=== PATIENT | male | born 1930 | race Caucasian/White ===

== ENCOUNTER 2017-07-15 14:41 | Inpatient (IN) ==
--- NOTE | 2017-07-15 14:49 | Emergency Department Report ---
Medical Clearance HPI - General Stated complaint: [facility] eval Time Seen by Provider: 07/15/17 14:47 Source: patient, family Mode of arrival: ambulatory Limitations: no limitations - History of Present Illness HPI Narrative: Patient is an 86-year-old male increasing depression and anger outbursts. Patient family is becoming more concerned, contacted [facility] to screen the patient. They found patient to be appropriate for admission, however have sent patient to the emergency room for evaluation for medical clearance. Patient without complaint of chest pain shortness breath or other systemic signs or symptoms MD complaint: medical clearance requested Home medications: Home Medications Medication Instructions Recorded Confirmed Acetaminophen [Tylenol] 650 mg PO HS 07/15/17 07/15/17 Acetaminophen [Tylenol] 650 mg PO Q4HR PRN 07/15/17 07/15/17 Cholecalciferol (Vitamin D3) 2,000 unit PO DAILY 07/15/17 07/15/17 [Vitamin D3] Cyanocobalamin (Vitamin B-12) 1 tab SL DAILY 07/15/17 07/15/17 [Vitamin B-12] Donepezil [Aricept 10 mg] 1 tab PO DAILY 07/15/17 07/15/17 Ferrous Gluconate 324 mg PO NOON 07/15/17 07/15/17 Gabapentin [Neurontin] 600 mg PO HS 07/15/17 07/15/17 Magnesium 250 mg PO BID 07/15/17 07/15/17 Melatonin 3 mg PO HS 07/15/17 07/15/17 Memantine HCl [Namenda] 5 mg PO BID 07/15/17 07/15/17 Methylphenidate. [Ritalin] 10 mg PO BIDBL 07/15/17 07/15/17 Multivitamin [One Daily] 1 each PO DAILY 07/15/17 07/15/17 PEG 3350 17gm PACKET [Miralax] 17 gm PO DAILY PRN 07/15/17 07/15/17 Propylene Glycol/Peg 400 [Systane 1 drop OP QID PRN 07/15/17 07/15/17 Ultra 0.4-0.3% Eye Drp] Quetiapine [Seroquel] 25 mg PO DAILY 07/15/17 07/15/17 Quetiapine [Seroquel] 100 mg PO HS 07/15/17 07/15/17 Sennosides/Docusate Sodium 1 tab PO DAILY 07/15/17 07/15/17 [Senokot-S Tablet] Sodium Chloride [[place] Saline] 1 spray CONCEPCION PRN 07/15/17 07/15/17 clonazePAM [Klonopin] 1 mg PO HS 07/15/17 07/15/17 clonazePAM [Klonopin] 1 mg PO PRN 07/15/17 07/15/17 Previous Rx's Medication Instructions Recorded latanoprost (Xalatan) 0.005 % eye 1 drop EACH EYE HS #2.5 ml 07/04/17 drops Allergies/Adverse reactions: Allergies Allergy/AdvReac Type Severity Reaction Status Date / Time Penicillins Allergy Mild RASH Verified 07/15/17 14:53 Review of Systems Constitutional: Denies: fever, chills Eyes: Denies: eye pain, eye discharge ENT: Denies: ear pain, throat pain Cardiovascular: Denies: chest pain, palpitations Respiratory: Denies: cough, dyspnea, wheezes Gastrointestinal: Denies: abdominal pain, nausea, vomiting Genitourinary: Denies: urgency, dysuria, frequency Musculoskeletal: Denies: back pain Neurological: Denies: headache, weakness, numbness, abnormal gait Psychiatric: Reports: depression. Denies: anxiety Endocrine: Denies: fatigue, heat or cold intolerance Hematological/Lymphatic: Denies: easy bleeding, easy bruising PFSH Patient Stated Medical History Transient Ischemic Attacks ( Yes TIA) Other HEENT Yes: Wears glasses Hypertension Yes Gastroesophageal Reflux Yes Disease Other GI Yes: Stomach CA Hx Benign Prostatic Yes Hyperplasia - Social History Smoking status: Never smoker Substance use type: does not use Alcohol intake frequency: does not drink Physical Exam - Limitations Limitations: no limitations - General General appearance: alert, in no apparent distress - Head Head exam: normocephalic, normal inspection - Eye Eye exam: Present: PERRL, EOMI - ENT ENT exam: Present: normal oropharynx, TM's normal bilaterally - Neck Neck exam: Present: full ROM, trachea midline. Absent: tenderness - Chest Chest inspection: Present: symmetric chest wall rise. Absent: tenderness, rash - Respiratory Respiratory exam: Present: normal lung sounds bilaterally. Absent: respiratory distress, wheezes, stridor - Cardiovascular Cardiovascular exam: Present: regular rate, normal rhythm, normal heart sounds - Abdominal Exam Abdominal exam: Present: soft, normal bowel sounds. Absent: distention, tenderness - Back Exam Back exam: Present: full ROM. Absent: tenderness, CVA tenderness (R), CVA tenderness (L) - Skin Skin exam: Present: warm, dry - Neurological Exam Neurological exam: Present: alert, oriented X3 - Psychiatric Psychiatric exam: Present: normal affect, normal mood Course Vital Signs Temperature 98.3 F 07/15/17 14:49 Pulse Rate 76 07/15/17 14:49 Respiratory Rate 18 07/15/17 14:49 Blood Pressure 170/88 H 07/15/17 14:49 Pulse Oximetry 92 07/15/17 14:49 Temperature 98.2 F 07/18/17 07:56 Pulse Rate 70 07/18/17 07:56 Respiratory Rate 16 07/18/17 07:56 Blood Pressure 134/72 07/18/17 07:56 Pulse Oximetry 93 07/18/17 07:56 Medical Clearance - Medical Records Attestation: I reviewed the patient's medical records. - Lab Data Attestation: I reviewed the patient's lab results. Result diagrams: 07/15/17 15:40 07/18/17 07:18 Lab Results 07/15/17 07/15/17 07/15/17 Range/Units 15:00 15:36 15:40 WBC 8.1 (4.5-11.0) T/MM3 RBC 4.13 L (4.50-5.90) M/MM3 Hgb 12.7 L (13.5-17.5) GM/DL Hct 39.9 L (41-53) % MCV 96.6 (80-100) UM3 MCH 30.8 (26-34) UUG MCHC 31.8 (31-37) GM/DL RDW Std Deviation 50.3 H (36.9-50.2) FL Plt Count 231 (130-400) T/MM3 MPV 10.1 (9.4-12.4) UM3 Immature Gran % (Auto) 0.2 (0.0-0.5) % Neut % (Auto) 64.8 (33-66) % Lymph % (Auto) 23.4 (23-45) % [place] % (Auto) 8.4 (0-9.0) % Eos % (Auto) 3.0 (0-4) % Baso % (Auto) 0.2 (0-2) % Neut # (Auto) 5.2 (1.8-7.7) T/MM3 Lymph # (Auto) 1.9 (1-4.8) T/MM3 [place] # (Auto) 0.7 (0-0.8) T/MM3 Eos # (Auto) 0.2 (0-0.5) T/MM3 Baso # (Auto) 0.0 (0-0.2) T/MM3 Abs Immat Gran (auto) 0.02 (0.00-0.03) T/MM3 Turbidity (0-20) Sodium (134-144) MEQ/L Potassium (3.6-5) MEQ/L Chloride (98-107) MEQ/L Carbon Dioxide (22-30) MEQ/L Anion Gap (5-15) meq/L BUN (9-20) MG/DL Creatinine (0.8-1.5) mg/dL GFR Calculation BUN/Creatinine Ratio (6-26) RATIO Glucose (75-110) MG/DL Calculated Osmolality (261-280) MOSM/KG Calcium (8.4-10.2) MG/DL Total Bilirubin (0.20-1.30) MG/DL Icterus Index (0-7) AST (17-59) U/L ALT (1-50) U/L Alkaline Phosphatase (38-126) U/L Total Protein (6.3-8.2) g/dL Albumin (3.5-5.0) g/dL Globulin (2.4-3.6) G/DL Albumin/Globulin Ratio (1.1-2.2) RATIO Vitamin B12 > 1000 H (239-931) pg/mL Folate > 20.0 H (2.76-20) ng/mL TSH (0.47-4.68) mIU/L Specimen Hemolysis (0-25) Ur Collection Type Urine, void-cc/notcc Urine Color Yellow (YELLOW) Urine Clarity Clear Urine pH 6.5 (5.0-8.0) Ur Specific [place] 1.020 (1.015-1.025) Urine Protein Negative (NEGATIVE) Urine Glucose (UA) Negative (NEGATIVE) Urine Ketones Negative (NEGATIVE) Urine Occult Blood Negative (NEGATIVE) Urine Nitrate Negative (NEGATIVE) Urine Bilirubin Negative (NEGATIVE) Urine Urobilinogen 1.0 (NORMAL) EU/DL Ur Leukocyte Esterase Negative (NEGATIVE) Urinalysis Comment Microscopic not ind. 07/15/17 Range/Units 15:40 WBC (4.5-11.0) T/MM3 RBC (4.50-5.90) M/MM3 Hgb (13.5-17.5) GM/DL Hct (41-53) % MCV (80-100) UM3 MCH (26-34) UUG MCHC (31-37) GM/DL RDW Std Deviation (36.9-50.2) FL Plt Count (130-400) T/MM3 MPV (9.4-12.4) UM3 Immature Gran % (Auto) (0.0-0.5) % Neut % (Auto) (33-66) % Lymph % (Auto) (23-45) % [place] % (Auto) (0-9.0) % Eos % (Auto) (0-4) % Baso % (Auto) (0-2) % Neut # (Auto) (1.8-7.7) T/MM3 Lymph # (Auto) (1-4.8) T/MM3 [place] # (Auto) (0-0.8) T/MM3 Eos # (Auto) (0-0.5) T/MM3 Baso # (Auto) (0-0.2) T/MM3 Abs Immat Gran (auto) (0.00-0.03) T/MM3 Turbidity < 20 (0-20) Sodium 149 H (134-144) MEQ/L Potassium 4.1 (3.6-5) MEQ/L Chloride 110 H (98-107) MEQ/L Carbon Dioxide 29 (22-30) MEQ/L Anion Gap 10 (5-15) meq/L BUN 20.0 (9-20) MG/DL Creatinine 1.0 (0.8-1.5) mg/dL GFR Calculation 71 BUN/Creatinine Ratio 20 (6-26) RATIO Glucose 112 H (75-110) MG/DL Calculated Osmolality 290 H (261-280) MOSM/KG Calcium 8.9 (8.4-10.2) MG/DL Total Bilirubin 0.30 (0.20-1.30) MG/DL Icterus Index < 2 (0-7) AST 54 (17-59) U/L ALT 51 H (1-50) U/L Alkaline Phosphatase 69 (38-126) U/L Total Protein 6.6 (6.3-8.2) g/dL Albumin 3.9 (3.5-5.0) g/dL Globulin 2.7 (2.4-3.6) G/DL Albumin/Globulin Ratio 1.4 (1.1-2.2) RATIO Vitamin B12 (239-931) pg/mL Folate (2.76-20) ng/mL TSH 2.86 (0.47-4.68) mIU/L Specimen Hemolysis < 15 (0-25) Ur Collection Type Urine Color (YELLOW) Urine Clarity Urine pH (5.0-8.0) Ur Specific [place] (1.015-1.025) Urine Protein (NEGATIVE) Urine Glucose (UA) (NEGATIVE) Urine Ketones (NEGATIVE) Urine Occult Blood (NEGATIVE) Urine Nitrate (NEGATIVE) Urine Bilirubin (NEGATIVE) Urine Urobilinogen (NORMAL) EU/DL Ur Leukocyte Esterase (NEGATIVE) Urinalysis Comment - Radiology Data Attestation: I reviewed the patient's radiology results. Chest x-ray: No acute cardiopulmonary findings - EKG Data EKG #1 EKG attestation: Yes: I reviewed and interpreted this EKG. EKG shows normal: sinus rhythm Rate: normal Rhythm: NSR [place]/QRS: RBBB Interpretation: no acute changes Disposition Clinical Impression: [facility] Clear[facility] Disposition: 63 To [facility] Condition: Stable for Transport - Seen By: physician
--- OUTSIDE RECORDS SUMMARY | 2017-07-15 15:13 | External Medical Summary | Continuity of Care Document ---
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 [id number] - 06/08/17 10:10 Vitamin B12 - AMS > 2000 pg/mL 213-816 [id number] - 06/08/17 10:10 Free T4 (Free Thyroxine)-AMS 0.9 ng/dL 0.7-1.5 Encounters ACCT No. Visit Discharge Status Pt. Type Provider Facility Loc./Unit Complaint Date/Time [id number] 09/08/2015 09/08/2015 DIS Emergenc [place] [facility] "TIA &quo 142 15:41:00 19:21:00 y , [facility] [id number] 09/01/2015 09/01/2015 CLS Outpatie Marcelo Baer MTJose AlfredoGOVE 429 06:53:00 23:59:59 david ARREDONDO, [facility] [id number] 10/12/2012 10/12/2012 CLS Outpatie Marie GERMANWKUA 720 10:45:00 23:59:59 david Tirado [facility] [id number] 02/07/2012 02/07/2012 CLS Outpatie Marie MITTAL.P 425 14:40:00 23:59:59 david Tirado [facility] [id number] 09/28/2006 09/28/2006 CLS Outpatilashon Jessica MD, Buffy 023 00:00:00 23:59:59 david [facility] [id number] 04/06/2017 04/06/2017 CLS Outpatie GOVE, 16:08:00 23:59:59 nt [facility] [id number] 04/06/2017 04/06/2017 DIS Outpatie LADAN, ELECTRONIC 15:47:00 15:47:00 nt EMELIA M ORDER LABS [id number] 01/03/2017 01/03/2017 CLS Outpatie ANITA, XRAYS 13:07:00 23:59:59 nt TARIQ W [id number] 12/10/2016 12/10/2016 DIS Outpatie ANITA, MRI C-SPINE, 06:50:00 07:18:00 nt TARIQ W NO ACCIDENT [id number] 10/05/2016 10/20/2016 DIS Outpatie GRUENBTOREY PHYS THERAPY; 07:21:00 11:17:00 nt ER, BRIE NO ACCIDENT [id number] 10/01/2016 10/01/2016 DIS Outpatie LADAN, MRI BRAIN 06:50:00 07:31:00 nt EMELIA M [id number] 09/09/2016 09/27/2016 DIS Outpatie GRUENBACH PHYSICAL 09:23:00 14:36:00 nt ER, BRIE THERAPY [id number] 09/06/2016 09/06/2016 CLS Outpatie GRMARLYNACH LABWORK 11:43:00 23:59:59 nt ER, BRIE [id number] 06/11/2016 06/11/2016 DIS Outpatie MARCELO, LABS 08:27:00 08:27:00 nt BRIDGER [id number] 02/26/2016 02/26/2016 CLS Outpatie GRUENBACH LEFT WRIST 12:05:00 23:59:59 nt ER, BRIE FRACTURE [id number] 02/11/2016 02/11/2016 CLS Outpatie GRUENBACH L WRIST 14:53:38 23:59:59 nt ER, BRIE FRACTURE [id number] 01/19/2016 01/19/2016 CLS Outpatie LADAN, BLOODWORK 12:24:00 23:59:59 nt EMELIA M [id number] 01/15/2016 01/15/2016 CLS Outpatie LADAN, RED SWOLLEN 14:11:00 23:59:59 nt EMELIA M FEET [id number] 12/31/2015 12/31/2015 DIS Emergenc GRELO BROKE L ARM 11:13:00 13:45:00 y ER, BRIE [id number] 12/17/2015 12/17/2015 CLS Outpatie GRUENBACH BALANCE 12:39:00 23:59:59 nt ER, BRIE STRENGTHENING [id number] 12/14/2015 12/15/2015 DIS Inpatien LADAN, [place] 001 DYSEQUALIBRIM 12:46:00 17:10:00 t EMELIA [place] WITH HISTORY Medical OF TIA /[facility] [id number] 12/14/2015 12/14/2015 DIS Emergenc LADAN, POSSIBLE 11:04:00 12:45:00 y EMELIA [place]ello STROKE [id number] 11/21/2015 11/21/2015 DIS Outpatie NEMECHEK, TIA 10:08:00 10:08:00 nt BRIDGER [id number] 01/07/2016 Document 13:33:00 Registra tion [id number] 09/02/2015 Document 15:11:00 Registra tion [id number] 09/01/2015 Document 12:17:00 Registra tion [id number] 07/04/2017 07/04/2017 CLS Outpatie Nilhas 601 03:02:18 23:59:59 nt Bill ARREDONDO KSWebIMarizol 07/09/2017 ACT Document 09:40:50 Registra tion [id number] 07/08/2017 07/08/2017 DIS Outpatie GRUNDMEYE XR 08:47:00 13:47:00 nt HORTENCIA Morales [id number] 12/06/2016 12/06/2016 CLS Outpatie ANITA ARREDONDO, Noemí SRNS 370 10:00:00 23:59:59 nt [facility] [id number] 06/08/2017 06/08/2017 DIS Helen VILLAGOMEZ MD, [facility] Amarjit Lab- 548 09:54:00 11:18:00 nt KAYLYN [facility] Practice [id number] 06/07/2017 06/07/2017 RACHEL VILLAGOMEZ MD, [facility] Amarjit Lab - 067 10:30:00 12:00:00 nt KAYLYN [facility] [id number] 07/15/2017 Document 177 14:42:00 Registra tion [id number] 06/28/2017 Document 068 23:59:00 Registra tion [id number] 06/21/2017 Document 783 23:59:00 Registra tion [id number] 06/14/2017 Document 549 23:59:00 Registra tion [id number] 06/07/2017 Document 269 23:59:00 Registra tion [id number] 06/01/2016 06/01/2016 DIS Unknown 05:47:08 05:47:08 [id number] 05/27/2017 05/31/2017 DIS Inpatien Nilhas,, [facility], [facility] 692 06:06:00 10:55:00 [facility] on [address] [id number] 06/01/2017 Document [id number] 05:20:26 Registra tion [id number] 05/31/2017 Document [id number] 05:21:23 Registra tion [id number] 05/30/2017 Document [id number] 05:16:48 Registra tion [id number] 05/29/2017 Document [id number] 05:16:08 Registra tion [id number] 05/28/2017 Document [id number] 05:18:55 Registra tion [id number] 07/06/2016 07/06/2016 DIS Outpatie 12:02:33 12:02:34 nt [id number] 06/16/2016 06/16/2016 DIS Outpatie 11:31:55 11:31:55 nt [id number] 05/11/2016 05/11/2016 DIS Outpatie 19:48:19 19:48:20 nt [id number] 03/16/2016 03/16/2016 DIS Outpatie 19:33:08 19:33:08 nt [id number] 02/13/2016 02/13/2016 DIS Outpatie 11:57:12 11:57:12 nt [id number] 02/05/2016 02/05/2016 DIS Outpatie 19:17:37 19:17:37 nt [id number] 02/03/2016 02/03/2016 Outpatie 12:47:07 12:47:07 nt [id number] 10/06/2015 10/06/2015 DIS Outpatie 19:34:14 19:34:14 nt [id number] 10/25/2016 Document 15:18:42 Registra tion [id number] 09/09/2016 Document 14:34:19 Registra tion [id number] 05/17/2016 Document 17:41:39 Registra tion [id number] 03/15/2016 Document 18:35:58 Registra tion [id number] 03/09/2016 Document 15:58:20 Registra tion [id number] 02/04/2016 Document 10:22:43 Registra tion [id number] 12/22/2015 Document 12:37:00 Registra tion [id number] 12/03/2015 Document 05:01:00 Registra tion [id number] 12/01/2015 Document 10:10:00 Registra tion [id number] 11/19/2015 Document 11:40:00 Registra tion [id number] 04/05/2017 04/05/2017 [facility] Helen Olivier 13:30:00 23:59:59 nt er, [place]ina AGUIAR [id number] 04/05/2017 Document 13:30:00 Registra tion
--- NOTE | 2017-07-15 15:52 | XRay Report ---
Indication: generations clearance PROCEDURE: XR chest 1V: Encounter: Initial Comparison: September 24, 2008 Findings: The lungs are stable in appearance without new focal airspace consolidation. There is no pleural effusion or pneumothorax. The heart size, pulmonary vascularity and mediastinal contours are unchanged. Left subclavian port catheter in stable position. IMPRESSION: Stable appearance of the chest without acute cardiopulmonary disease. .
[2017-07-15 18:02] VITALS: BMI 29.1
[2017-07-15] MEDS ORDERED: HALOPERIDOL 0.5 MG TABLET PO PRN (21:28)
[2017-07-15] MEDS ORDERED: LORazepam 0.5 MG TABLET PO PRN (21:28)
[2017-07-15] MEDS ORDERED: SALINE 0.65% NASAL SPRAY 44 ML BOTTLE EA NOSTRIL SCH (21:28)
[2017-07-15] MEDS ORDERED: HALOPERIDOL 5 MG/ML INJECTION IM PRN (21:28)
[2017-07-15] MEDS ORDERED: POLYETHYL GLYCOL 3350 17gm PACKET PO PRN (21:28)
[2017-07-15] MEDS: ClonazePAM 1 MG TABLET PO SCH (22:16)
[2017-07-15] MEDS: ACETAMINOPHEN 325 MG TABLET PO SCH (22:16)
[2017-07-15] MEDS: GABAPENTIN 600 MG TABLET PO SCH (22:17)
[2017-07-15] MEDS: QUETIAPINE 100 MG TABLET PO SCH (22:17)
[2017-07-15] MEDS: MEMANTINE 5 MG TABLET PO SCH (22:17)
[2017-07-16] MEDS: LATANOPROST 0.005% EYE DROPS 2.5ml EACH EYE SCH ×2 (08:54→20:43)
[2017-07-16] MEDS: CYANOCOBALAMIN (B-12) 500mcg TABLET PO SCH (08:55)
[2017-07-16] MEDS: SENNA + DOCUSATE TABLET PO SCH (08:56)
[2017-07-16] MEDS: MAGNESIUM OXIDE 400 MG TABLET PO SCH ×2 (08:56→20:43)
[2017-07-16] MEDS: MULTI-VITAMIN PLAIN TABLET PO SCH (08:56)
[2017-07-16] MEDS: MEMANTINE 5 MG TABLET PO SCH ×2 (08:56→20:44)
[2017-07-16] MEDS: QUETIAPINE 25 MG TABLET PO SCH (08:56)
[2017-07-16] MEDS ORDERED: SYSTANE EYE DROPS 0.7ml EACH EYE PRN (09:00)
--- NOTE | 2017-07-16 11:54 | 24 Hour Neuropsychiatic Eval ---
Date of Admission: 07/15/17 16:25 Chief complaint: "I got hit in the head" History of Present Illness: HPI: 86 Y/O CM with a hx of dementia sent from [facility] for inncreasing confusion and aggression. Nursing reports pt slept well and has done well on the unit. On face to face the pt is pleasant but confused. He is a somewhat poor historian. Pt is alert and oriented x 3 but states he is here because a "Chain saw hit me in the head". He was reporting to nursing staff he believed he was in a war and needed to go outside to 'get the sniper". He voices no concerns at this time. PSYCH ROS: Pt is very pleasant. He reports his mood is stable. He denies any S/I or depressive symptoms. He reports sleeping well and having a good appetite. He denies anxiety, aiden or psychosis. PAST PSYCH: Pt is currently on Seroquel, Ritalin, Klonopin, Aricept and Namenda. No other past psych hx is known at this time although pt denies ever being treated for a mental health issues. SUBSTANCE: Denies SOCIAL HX: Born in [place]. Was a [employer]. . [facility] Patient Stated Medical History Transient Ischemic Attacks ( Yes TIA) Other HEENT Yes: Wears glasses Hypertension Yes Gastroesophageal Reflux Yes Disease Other GI Yes: Stomach CA Hx Benign Prostatic Yes Hyperplasia - Social History Smoking status: Never smoker Review of Systems - Psychiatric Psychiatric: Present: behavioral changes Mental Status Exam Vitals: Last Vital Signs Temp 97.5 F 07/16/17 07:40 Pulse 64 07/16/17 07:40 Resp 16 07/16/17 07:40 BP 140/73 H 07/16/17 07:40 Pulse Ox 93 07/16/17 07:40 Height: 1.7 m Weight: 84.3 kg - Mental Status Exam Muscle Strength/Tone: Normal Dressing: Casual Grooming: Good Attitude: Cooperative Motor Activity: Normal Eye Contact: Good Speech: Normal Volume: Normal Rhythm: Appropriate Rhythm Orientation: Oriented to person, Oriented to time Mood: Euthymic Affect: Bright Rate of Thoughts: Appropriate Rate Thought Organization: [place] Associations: Illogical Thought Content: Normal Perception/Psychotic: Perception Normal Language: Naming Impaired Fund of Knowledge: Poor fund of knowledge Memory: Poor-immediate, Poor-recent Suicidal Ideation: None Homicidal Ideation: None Insight: Poor Judgement: Poor Impulse Control: Poor - Laboratory Result Diagrams: 07/15/17 15:40 07/15/17 15:40 Assessment and Plan (1) Major neurocognitive disorder due to Alzheimer's disease, probable, with behavioral disturbance Current visit: Yes Status: Acute Continue to evaluate and stabilize. We will hold Ritalin at this time. Will attempt to titrate down on Clonazepam or switch to Ativan. Continue other home meds. Hospitalist for medical management
[2017-07-16] MEDS ORDERED: ClonazePAM 1 MG TABLET PO PRN (12:07)
--- NOTE | 2017-07-16 12:15 | History & Physical Report ---
History of Present Illness Date: 07/16/17 HPI: Ezequiel Okeefe is an 86 y/o male with a history of dementia. He struck his head on a door frame in May that caused LOC, resulting in cerebral contusion and left frontal SAH that was treated conservatively. He has shown slow improvement in mental status - initially he was severely impaired and now moderately impaired. He was sent to [facility] in [place] upon discharge from [facility]. Per reports, he' s been sundowning and exhibiting aggressive behavior. He hasn't been sleeping well. He's been paranoid and talking about needing to go for a drive and remarking about going to war. His symptoms worsened about 1 week ago, and haven' t improved with clonazepam and Risperdal. Arrangements were made for him to be admitted to [facility]. Labs on admission showed mild anemia with hgb of 12.7 and hypernatremia with Na of 149. Ezequiel was dozing off in his room on [facility]. He easily awoke and complained of feeling "sleepy". He was in no acute distress. He stated he's from [place] bit was unable to state where he is - he answered that he was sitting in a chair. Reports a headache from a head injury 3 weeks ago - he stated he was using a chain to pull the tractor out of the [place] and the chain snapped, striking him in the forehead. He denies fever/chills, cough/sinus problems, SOA or chest pain , weakness or dizziness, abdominal pain, vomiting or diarrhea, appetite changes , urinary problems. When I asked about leg swelling he appropriately answered that he wears STACEY hose. Review of Systems All systems PM: 10-point ROS was reviewed, no additional remarkable complaints except - Constitutional Constitutional: Present: headache(s). Absent: chills, fever(s), weakness - EENMT Eyes: Absent: change in vision Nose: Absent: obstruction Mouth/Throat: Absent: sore throat - Cardiovascular Cardiovascular: Absent: chest pain, palpitations Vascular: Present: pedal edema (wears stacey hose) - Respiratory Respiratory: Absent: cough, dyspnea - Gastrointestinal Gastrointestinal: Absent: abdominal pain, diarrhea, vomiting - Genitourinary Genitourinary: Absent: dysuria - Musculoskeletal Musculoskeletal: Absent: muscle weakness - Integumentary/Breasts Integumentary: Absent: rash - Neurological Neurological: Present: as per HPI - Psychiatric Psychiatric: Present: as per HPI - Endocrine Endocrine: Absent: palpitations Past Medical History Medical History Updates: Mild cerebrovascular dementia. RLS. Stomach cancer. Knee osteoarthritis Surgical History: Total knee replacement Family History: Unable to Obtain - Social History Smoking status: Never smoker Substance use type: does not use Alcohol intake frequency: does not drink Household members: spouse Current occupational status: retired Previous occupational history: [employer] Medications Home Medications Medication Instructions Recorded Confirmed Type latanoprost (Xalatan) 0.005 % eye 1 drop EACH EYE HS #2.5 ml 07/04/17 07/15/17 Rx drops Acetaminophen [Tylenol] 650 mg PO HS 07/15/17 07/15/17 History Acetaminophen [Tylenol] 650 mg PO Q4HR PRN 07/15/17 07/15/17 History Cholecalciferol (Vitamin D3) 2,000 unit PO DAILY 07/15/17 07/15/17 History [Vitamin D3] Cyanocobalamin (Vitamin B-12) 1 tab SL DAILY 07/15/17 07/15/17 History [Vitamin B-12] Donepezil [Aricept 10 mg] 1 tab PO DAILY 07/15/17 07/15/17 History Ferrous Gluconate 324 mg PO NOON 07/15/17 07/15/17 History Gabapentin [Neurontin] 600 mg PO HS 07/15/17 07/15/17 History Magnesium 250 mg PO BID 07/15/17 07/15/17 History Melatonin 3 mg PO HS 07/15/17 07/15/17 History Memantine HCl [Namenda] 5 mg PO BID 07/15/17 07/15/17 History Methylphenidate. [Ritalin] 10 mg PO BIDBL 07/15/17 07/15/17 History Multivitamin [One Daily] 1 each PO DAILY 07/15/17 07/15/17 History PEG 3350 17gm PACKET [Miralax] 17 gm PO DAILY PRN 07/15/17 07/15/17 History Propylene Glycol/Peg 400 [Systane 1 drop OP QID PRN 07/15/17 07/15/17 History Ultra 0.4-0.3% Eye Drp] Quetiapine [Seroquel] 25 mg PO DAILY 07/15/17 07/15/17 History Quetiapine [Seroquel] 100 mg PO HS 07/15/17 07/15/17 History Sennosides/Docusate Sodium 1 tab PO DAILY 07/15/17 07/15/17 History [Senokot-S Tablet] Sodium Chloride [[place] Saline] 1 spray CONCEPCION PRN 07/15/17 07/15/17 History clonazePAM [Klonopin] 1 mg PO HS 07/15/17 07/15/17 History clonazePAM [Klonopin] 1 mg PO PRN 07/15/17 07/15/17 History Allergies Allergy/AdvReac Type Severity Reaction Status Date / Time Penicillins Allergy Mild RASH Verified 07/15/17 14:53 Exam Vital Signs: Temperature 97.5 F 07/16/17 07:40 Pulse Rate 64 07/16/17 07:40 Respiratory Rate 16 07/16/17 07:40 Blood Pressure 140/73 H 07/16/17 07:40 Pulse Oximetry 93 07/16/17 07:40 Height/Weight/BMI: Height 1.7 m Weight 84.3 kg Body Mass Index 29.1 - Constitutional Present: no acute distress, well nourished, well developed - Routine HEENT Exam Head: Present: normocephalic Eye: Present: PERRL. Absent: conjunctival icterus, scleral injection ENT: Present: mucous membranes moist, oropharynx clear - Routine Neck Exam Present: supple - Routine Respiratory Exam Present: CTA bilaterally - Routine Cardiovascular Exam Present: RRR, S1, S2 - Routine Abdominal Exam Present: soft, normoactive bowel sounds, non distended, non tender - Routine Extremities Exam Present: edema (trace BLE; STACEY hose in place), pulses intact - Routine Skin Exam Present: intact, dry, warm - Routine Neurological Exam Present: alert, CN II-XII intact, moving all extremities, vision grossly intact , hearing grossly intact, normal speech. 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 TSH was normal. CXR unremarkable. Vit B12 and folate still pending. BP moderately elevated - monitor for now. He's not on an antiHTN. Encourage oral fluids for hypernatremia. Recheck BMP on 07/18. Provide safe, supportive environment. Dr Rodriguez's recommendations were reviewed. Clinic records and nsg home records were reviewed. Code: DNR. PCP: Dr. Meadows. Resuscitation Status: Do Not Resuscitate - Physician Narrative Narrative: Date: 07/16/17 Time: 1212 Hospital Course Summary Disclaimer: The visit summary below is not to be considered part of the above Progress Note. Hospital Course: 07/16 Agree with [facility] w/u. TSH was normal. CXR unremarkable. Vit B12 and folate still pending. BP moderately elevated - monitor for now. He's not on an antiHTN. Encourage oral fluids for hypernatremia. Recheck BMP on 07/18. Provide safe, supportive environment. Dr Rodriguez's recommendations were reviewed. Clinic records and nsg home records were reviewed. Code: DNR. PCP: Dr. Meadows.
[2017-07-16] MEDS: FERROUS GLUCONATE 324 MG TABLET PO SCH (14:45)
[2017-07-16] MEDS: ACETAMINOPHEN 325 MG TABLET PO SCH (20:40)
[2017-07-16] MEDS: ClonazePAM 1 MG TABLET PO SCH (20:41)
[2017-07-16] MEDS: DONEPEZIL 10 MG TABLET PO SCH (20:41)
[2017-07-16] MEDS: GABAPENTIN 600 MG TABLET PO SCH (20:41)
[2017-07-16] MEDS: QUETIAPINE 100 MG TABLET PO SCH (20:44)
[2017-07-17] MEDS: MAGNESIUM OXIDE 400 MG TABLET PO SCH ×2 (08:47→20:31)
[2017-07-17] MEDS: MULTI-VITAMIN PLAIN TABLET PO SCH (08:47)
[2017-07-17] MEDS: QUETIAPINE 25 MG TABLET PO SCH (08:48)
[2017-07-17] MEDS: SENNA + DOCUSATE TABLET PO SCH (08:48)
[2017-07-17] MEDS: MEMANTINE 5 MG TABLET PO SCH ×2 (08:48→20:31)
[2017-07-17] MEDS: CYANOCOBALAMIN (B-12) 500mcg TABLET PO SCH (08:48)
--- NOTE | 2017-07-17 11:43 | Neuropsych Progress Note ---
[facility] Subjective Date: 07/17/17 - Sujective/Severity of Illness Medications: Acetaminophen (Tylenol) 650 mg PO [facility] Last Admin: 07/16/17 20:40 Dose: 650 mg Cholecalciferol (Vit. D-3) 2,000 unit PO DAILY [facility] Last Admin: 07/17/17 08:45 Dose: 2,000 unit Clonazepam (Klonopin) 1 mg PO [facility] Last Admin: 07/16/17 20:41 Dose: 1 mg Clonazepam (Klonopin) 1 mg PO DAILY PRN Cyanocobalamin (Vit. B-12) 500 mcg PO DAILY [facility] Last Admin: 07/17/17 08:48 Dose: 500 mcg Donepezil HCl (Aricept 10 Mg) 10 mg PO [facility] Last Admin: 07/16/17 20:41 Dose: 10 mg Ferrous Gluconate (Fergon) 324 mg PO NOON [facility] Last Admin: 07/16/17 14:45 Dose: 324 mg Gabapentin (Neurontin) 600 mg PO [facility] Last Admin: 07/16/17 20:41 Dose: 600 mg Haloperidol (Haldol) 0.5 mg PO Q6H PRN PRN Reason: Extreme agitation Haloperidol Lactate (Haldol) 0.5 mg IM Q6H PRN PRN Reason: Extreme agitation Latanoprost (Xalatan) 1 drops EACH EYE [facility] Last Admin: 07/16/17 20:43 Dose: 1 drops Lorazepam (Ativan) 0.5 mg PO Q6H PRN PRN Reason: Extreme agitation Lorazepam (Ativan Inj) 0.5 mg IM Q6H PRN PRN Reason: Extreme agitation Magnesium Oxide (Magox) 400 mg PO BID [facility] Last Admin: 07/17/17 08:47 Dose: 400 mg Memantine (Namenda) 5 mg PO BID [facility] Last Admin: 07/17/17 08:48 Dose: 5 mg Multivitamins (Theragran) 1 tab PO DAILY [facility] Last Admin: 07/17/17 08:47 Dose: 1 tab Polyethyl Glycol/Propylene Glycol (Systane Eye Drops) 1 drop EACH EYE QID PRN PRN Reason: FOR DRY EYES Polyethylene Glycol (Miralax) 17 gm PO DAILY PRN PRN Reason: Constipation Quetiapine Fumarate (Seroquel) 25 mg PO DAILY [facility] Last Admin: 07/17/17 08:48 Dose: 25 mg Quetiapine Fumarate (Seroquel) 100 mg PO HS [facility] Last Admin: 07/16/17 20:44 Dose: 100 mg Senna/Docusate Sodium (Senna Plus Tablet) 1 tab PO DAILY [facility] Last Admin: 07/17/17 08:48 Dose: 1 tab Sodium Chloride (Deep Sea Nasal Moisturizing [place]) 1 spray EA NOSTRIL PRN [facility] Subjective: Pt seen and chart examined. Nursing reports pt is doing well. Sleeping well and has a good appetite. No behaviors noted. On face to face the pt is pleasant and cooperative. He reports he feels his mood is stable. He denies any pain. Tolerating meds. Voices no concerns at this time Start Time: 10:30 Stop Time: 10:45 Mental Status Exam Vitals: Last Vital Signs Temp 97.8 F 07/17/17 08:00 Pulse 68 07/17/17 08:00 Resp 16 07/17/17 08:00 BP 136/66 07/17/17 08:00 Pulse Ox 93 07/16/17 20:00 Height: 1.7 m Weight: 84.3 kg - Mental Status Exam Muscle Strength/Tone: Normal Dressing: Casual Grooming: Good Attitude: Cooperative Motor Activity: Normal Eye Contact: Good Speech: Normal Volume: Normal Rhythm: Appropriate Rhythm Orientation: Oriented to person, Oriented to time Mood: Euthymic Rate of Thoughts: Appropriate Rate Thought Organization: [place] Associations: Illogical Thought Content: Normal Perception/Psychotic: Perception Normal Language: Naming Impaired Fund of Knowledge: Poor fund of knowledge Memory: Poor-immediate, Poor-recent Suicidal Ideation: None Homicidal Ideation: None Insight: Poor Judgement: Poor Impulse Control: Poor - Laboratory Result Diagrams: 07/15/17 15:40 07/15/17 15:40 Assessment and Plan (1) Major neurocognitive disorder due to Alzheimer's disease, probable, with behavioral disturbance Current visit: Yes Status: Acute Hospital Course Summary Disclaimer: The visit summary below is not to be considered part of the above Progress Note. Hospital Course: 07/16 Agree with [facility] w/u. TSH was normal. CXR unremarkable. Vit B12 and folate still pending. BP moderately elevated - monitor for now. He's not on an antiHTN. Encourage oral fluids for hypernatremia. Recheck BMP on 5/14. Provide safe, supportive environment. Dr Rodriguez's recommendations were reviewed. Clinic records and nsg home records were reviewed. Code: DNR. PCP: Dr. Meadows. 07/17/17 Psych note- No behaviors. Continue current care
[2017-07-17] MEDS: FERROUS GLUCONATE 324 MG TABLET PO SCH (12:53)
[2017-07-17] MEDS: ACETAMINOPHEN 325 MG TABLET PO SCH (20:26)
[2017-07-17] MEDS: DONEPEZIL 10 MG TABLET PO SCH (20:28)
[2017-07-17] MEDS: ClonazePAM 1 MG TABLET PO SCH (20:30)
[2017-07-17] MEDS: GABAPENTIN 600 MG TABLET PO SCH (20:30)
[2017-07-17] MEDS: QUETIAPINE 100 MG TABLET PO SCH (20:31)
[2017-07-17] MEDS: LATANOPROST 0.005% EYE DROPS 2.5ml EACH EYE SCH (20:31)
[2017-07-18] MEDS: CYANOCOBALAMIN (B-12) 500mcg TABLET PO SCH (08:24)
[2017-07-18] MEDS: MEMANTINE 5 MG TABLET PO SCH ×2 (08:24→20:37)
[2017-07-18] MEDS: MULTI-VITAMIN PLAIN TABLET PO SCH (08:24)
[2017-07-18] MEDS: MAGNESIUM OXIDE 400 MG TABLET PO SCH ×2 (08:24→20:36)
[2017-07-18] MEDS: QUETIAPINE 25 MG TABLET PO SCH (08:25)
[2017-07-18] MEDS: SENNA + DOCUSATE TABLET PO SCH (08:25)
[2017-07-18] MEDS: FERROUS GLUCONATE 324 MG TABLET PO SCH (11:56)
--- NOTE | 2017-07-18 14:02 | Neuropsych Progress Note ---
[facility] Subjective Date: 07/19/17 - Sujective/Severity of Illness Medications: Acetaminophen (Tylenol) 650 mg PO [facility] Last Admin: 07/17/17 20:26 Dose: 650 mg Cholecalciferol (Vit. D-3) 2,000 unit PO DAILY [facility] Last Admin: 07/18/17 08:24 Dose: 2,000 unit Clonazepam (Klonopin) 1 mg PO [facility] Last Admin: 07/17/17 20:30 Dose: 1 mg Clonazepam (Klonopin) 1 mg PO DAILY PRN Cyanocobalamin (Vit. B-12) 500 mcg PO DAILY [facility] Last Admin: 07/18/17 08:24 Dose: 500 mcg Donepezil HCl (Aricept 10 Mg) 10 mg PO [facility] Last Admin: 07/17/17 20:28 Dose: 10 mg Ferrous Gluconate (Fergon) 324 mg PO NOON [facility] Last Admin: 07/18/17 11:56 Dose: 324 mg Gabapentin (Neurontin) 600 mg PO [facility] Last Admin: 07/17/17 20:30 Dose: 600 mg Haloperidol (Haldol) 0.5 mg PO Q6H PRN PRN Reason: Extreme agitation Haloperidol Lactate (Haldol) 0.5 mg IM Q6H PRN PRN Reason: Extreme agitation Latanoprost (Xalatan) 1 drops EACH EYE [facility] Last Admin: 07/17/17 20:31 Dose: 1 drops Lorazepam (Ativan) 0.5 mg PO Q6H PRN PRN Reason: Extreme agitation Lorazepam (Ativan Inj) 0.5 mg IM Q6H PRN PRN Reason: Extreme agitation Magnesium Oxide (Magox) 400 mg PO BID [facility] Last Admin: 07/18/17 08:24 Dose: 400 mg Memantine (Namenda) 5 mg PO BID [facility] Last Admin: 07/18/17 08:24 Dose: 5 mg Multivitamins (Theragran) 1 tab PO DAILY [facility] Last Admin: 07/18/17 08:24 Dose: 1 tab Polyethyl Glycol/Propylene Glycol (Systane Eye Drops) 1 drop EACH EYE QID PRN PRN Reason: FOR DRY EYES Polyethylene Glycol (Miralax) 17 gm PO DAILY PRN PRN Reason: Constipation Quetiapine Fumarate (Seroquel) 25 mg PO DAILY [facility] Last Admin: 07/18/17 08:25 Dose: 25 mg Quetiapine Fumarate (Seroquel) 100 mg PO HS [facility] Last Admin: 07/17/17 20:31 Dose: 100 mg Senna/Docusate Sodium (Senna Plus Tablet) 1 tab PO DAILY [facility] Last Admin: 07/18/17 08:25 Dose: 1 tab Sodium Chloride (Deep Sea Nasal Moisturizing [place]) 1 spray EA NOSTRIL PRN [facility] Subjective: Patient seen and chart reviewed. Case discussed with treatment team. On interview, patient is sitting in his room with . He is somewhat guarded and asks about discharge multiple times, though he is accepting of answer that he will not discharge in next 1-2 days. Patient denies any SI, HI or AVH. Patient denies any adverse side effects related to psychotropic medications. He seems to have little insight in regards to previously reported symptoms or cognitive deficits. Nursing staff report patient tends to isolate to his room and was guarded last evening, irritable but redirectable. Patient has been adherent with medications. Patient slept 6 hours overnight. VSS. Patient is eating well. Psychotropic PRNs required in the past 24 hours: none. Discussed medications with patient and . Agreed to begin taper of Klonopin this evening. Start Time: 13:40 Stop Time: 14:00 Mental Status Exam Vitals: Last Vital Signs Temp 98.2 F 07/18/17 07:56 Pulse 70 07/18/17 07:56 Resp 16 07/18/17 07:56 BP 134/72 07/18/17 07:56 Pulse Ox 93 07/18/17 07:56 Height: 1.7 m Weight: 84.3 kg - Mental Status Exam Muscle Strength/Tone: Normal Dressing: Casual Grooming: Good Attitude: Guarded Motor Activity: Normal Eye Contact: Good Speech: Normal Volume: Normal Rhythm: Appropriate Rhythm Orientation: Disoriented to situation, Oriented to person, Oriented to time Mood: Neutral (has been irritable, worse in evenings) Rate of Thoughts: Appropriate Rate Thought Organization: [place] Associations: Illogical Thought Content: Normal (other than focused on discarhge) Perception/Psychotic: Perception Normal Language: Naming Impaired Fund of Knowledge: Poor fund of knowledge Memory: Poor-immediate, Poor-recent Suicidal Ideation: Denies Homicidal Ideation: Denies Insight: Poor Judgement: Poor Impulse Control: Poor - Laboratory Result Diagrams: 07/15/17 15:40 07/18/17 07:18 Laboratory Results - last 24 hr 07/18/17 07:18 Turbidity < 20 Sodium 148 H Potassium 4.0 Chloride 108 H Carbon Dioxide 30 Anion Gap 10 BUN 27.0 H Creatinine 1.0 GFR Calculation 71 BUN/Creatinine Ratio 27 H Glucose 94 Calculated Osmolality 289 H Calcium 9.1 Icterus Index < 2 Specimen Hemolysis < 15 Assessment and Plan (1) Major neurocognitive disorder due to Alzheimer's disease, probable, with behavioral disturbance Current visit: Yes Status: Acute (2) History of subarachnoid hemorrhage Current visit: Yes Status: Acute Decrease Klonopin to 0.5mg PO q HS; monitor response. Hospital Course Summary Disclaimer: The visit summary below is not to be considered part of the above Progress Note. Hospital Course: 07/16 Agree with [facility] w/u. TSH was normal. CXR unremarkable. Vit B12 and folate still pending. BP moderately elevated - monitor for now. He's not on an antiHTN. Encourage oral fluids for hypernatremia. Recheck BMP on 07/18. Provide safe, supportive environment. Dr Rodriguez's recommendations were reviewed. Clinic records and [facility] [place] home records were reviewed. Code: DNR. PCP: Dr. Meadows. 07/17/17 Psych note- No behaviors. Continue current care. 07/18/17 Psych: Decrease Klonopin to 0.5mg PO q HS; monitor response.
[2017-07-18] MEDS ORDERED: ClonazePAM 0.5 MG TABLET PO SCH (15:18)
[2017-07-18] MEDS: DONEPEZIL 10 MG TABLET PO SCH (20:34)
[2017-07-18] MEDS: ACETAMINOPHEN 325 MG TABLET PO SCH (20:34)
[2017-07-18] MEDS: ClonazePAM 1 MG TABLET PO SCH (20:35)
[2017-07-18] MEDS: QUETIAPINE 100 MG TABLET PO SCH (20:37)
[2017-07-18] MEDS: LATANOPROST 0.005% EYE DROPS 2.5ml EACH EYE SCH (20:37)
[2017-07-18] MEDS: GABAPENTIN 600 MG TABLET PO SCH (20:38)
[2017-07-19] MEDS: SENNA + DOCUSATE TABLET PO SCH (08:11)
[2017-07-19] MEDS: QUETIAPINE 25 MG TABLET PO SCH (08:11)
[2017-07-19] MEDS: CYANOCOBALAMIN (B-12) 500mcg TABLET PO SCH (08:11)
[2017-07-19] MEDS: MAGNESIUM OXIDE 400 MG TABLET PO SCH ×2 (08:12→21:45)
[2017-07-19] MEDS: MULTI-VITAMIN PLAIN TABLET PO SCH (08:12)
[2017-07-19] MEDS: MEMANTINE 5 MG TABLET PO SCH ×2 (08:12→21:46)
[2017-07-19] MEDS: FERROUS GLUCONATE 324 MG TABLET PO SCH (12:10)
--- NOTE | 2017-07-19 13:33 | Neuropsych Progress Note ---
[facility] Subjective Date: 07/19/17 - Sujective/Severity of Illness Medications: Acetaminophen (Tylenol) 650 mg PO [facility] Last Admin: 07/18/17 20:34 Dose: 650 mg Cholecalciferol (Vit. D-3) 2,000 unit PO DAILY [facility] Last Admin: 07/19/17 08:11 Dose: 2,000 unit Clonazepam (Klonopin) 0.5 mg PO [facility] Last Admin: 07/18/17 20:43 Dose: 0.5 mg Cyanocobalamin (Vit. B-12) 500 mcg PO DAILY [facility] Last Admin: 07/19/17 08:11 Dose: 500 mcg Donepezil HCl (Aricept 10 Mg) 10 mg PO [facility] Last Admin: 07/18/17 20:34 Dose: 10 mg Ferrous Gluconate (Fergon) 324 mg PO NOON [facility] Last Admin: 07/19/17 12:10 Dose: 324 mg Gabapentin (Neurontin) 600 mg PO [facility] Last Admin: 07/18/17 20:38 Dose: 600 mg Haloperidol (Haldol) 0.5 mg PO Q6H PRN PRN Reason: Extreme agitation Haloperidol Lactate (Haldol) 0.5 mg IM Q6H PRN PRN Reason: Extreme agitation Latanoprost (Xalatan) 1 drops EACH EYE [facility] Last Admin: 07/18/17 20:37 Dose: 1 drops Lorazepam (Ativan) 0.5 mg PO Q6H PRN PRN Reason: Extreme agitation Lorazepam (Ativan Inj) 0.5 mg IM Q6H PRN PRN Reason: Extreme agitation Magnesium Oxide (Magox) 400 mg PO BID [facility] Last Admin: 07/19/17 08:12 Dose: 400 mg Memantine (Namenda) 5 mg PO BID [facility] Last Admin: 07/19/17 08:12 Dose: 5 mg Multivitamins (Theragran) 1 tab PO DAILY [facility] Last Admin: 07/19/17 08:12 Dose: 1 tab Polyethyl Glycol/Propylene Glycol (Systane Eye Drops) 1 drop EACH EYE QID PRN PRN Reason: FOR DRY EYES Polyethylene Glycol (Miralax) 17 gm PO DAILY PRN PRN Reason: Constipation Quetiapine Fumarate (Seroquel) 25 mg PO DAILY [facility] Last Admin: 07/19/17 08:11 Dose: 25 mg Quetiapine Fumarate (Seroquel) 100 mg PO HS [facility] Last Admin: 07/18/17 20:37 Dose: 100 mg Senna/Docusate Sodium (Senna Plus Tablet) 1 tab PO DAILY [facility] Last Admin: 07/19/17 08:11 Dose: 1 tab Sodium Chloride (Deep Sea Nasal Moisturizing [place]) 1 spray EA NOSTRIL PRN [facility] Subjective: Patient seen and chart reviewed. Case discussed with treatment team. On interview, patient is sitting in his room by himself. He has little insight into reasons for hospitalization and says he is here because "he got hit in the head with a tractor chain and then again on the right side of a door." He has some memory of his head injury and getting an MRI, etc. but has limited capabilities of understanding cognitive implications. He feels his mood has been good though expresses frustration with medical staff not allowing him to do whatever he wants. He states, "I think I know more about my body than they do." When asked how he handles this, he denies getting upset or aggressive and says he just remembers tomorrow will be a new day. Patient denies any SI, HI or AVH. Patient denies any adverse side effects related to psychotropic medications. He seems to have little insight in regards to previously reported symptoms or cognitive deficits. Nursing staff report patient had a fall last night after his shower but was not believe to suffer injury from this. No other significant behaviors though guarded at times. Patient has been adherent with medications. Patient slept 8 hours overnight. VSS. Patient is eating well. Psychotropic PRNs required in the past 24 hours: none. Start Time: 09:40 Stop Time: 10:00 Mental Status Exam Vitals: Last Vital Signs Temp 97.4 F 07/19/17 08:00 Pulse 64 07/19/17 08:00 Resp 16 07/19/17 08:00 BP 145/76 H 07/19/17 08:00 Pulse Ox 95 07/19/17 08:00 Height: 1.7 m Weight: 84.3 kg - Mental Status Exam Muscle Strength/Tone: Normal Dressing: Casual Grooming: Good Attitude: Cooperative Motor Activity: Normal Eye Contact: Good Speech: Normal Volume: Normal Rhythm: Appropriate Rhythm Orientation: Disoriented to situation, Oriented to person, Oriented to time Mood: Neutral (has been irritable, worse in evenings) Affect: Relaxed (during interview) Rate of Thoughts: Appropriate Rate Thought Organization: [place] Associations: Illogical Thought Content: Normal (other than focused on discarhge) Perception/Psychotic: Perception Normal Language: Naming Impaired Fund of Knowledge: Poor fund of knowledge Memory: Poor-immediate, Poor-recent Suicidal Ideation: Denies Homicidal Ideation: Denies Insight: Poor Judgement: Poor Impulse Control: Poor - Laboratory Result Diagrams: 07/15/17 15:40 07/18/17 07:18 Laboratory Results - last 24 hr 07/19/17 07:30 Hemoglobin A1c 5.8 H Triglycerides 69 Cholesterol 173 LDL Cholesterol, Calc 108.2 VLDL Cholesterol 13.8 HDL Cholesterol 51 Cholesterol/HDL Ratio 3.4 Assessment and Plan (1) Major neurocognitive disorder due to Alzheimer's disease, probable, with behavioral disturbance Current visit: Yes Status: Acute (2) History of subarachnoid hemorrhage Current visit: Yes Status: Acute Discontinue Klonopin. Start Ativan 1mg PO q HS and monitor response. Hospital Course Summary Disclaimer: The visit summary below is not to be considered part of the above Progress Note. Hospital Course: 07/16 Agree with [facility] w/u. TSH was normal. CXR unremarkable. Vit B12 and folate still pending. BP moderately elevated - monitor for now. He's not on an antiHTN. Encourage oral fluids for hypernatremia. Recheck BMP on 07/18. Provide safe, supportive environment. Dr Rodriguez's recommendations were reviewed. Clinic records and [facility] [place] home records were reviewed. Code: DNR. PCP: Dr. Meadows. 07/17/17 Psych note- No behaviors. Continue current care. 07/18/17 Psych: Decrease Klonopin to 0.5mg PO q HS; monitor response. 07/19/17 Psych: Discontinue Klonopin. Start Ativan 1mg PO q HS and monitor response.
[2017-07-19] MEDS: LORazepam 1 MG TABLET PO SCH (21:44)
[2017-07-19] MEDS: GABAPENTIN 600 MG TABLET PO SCH (21:44)
[2017-07-19] MEDS: ACETAMINOPHEN 325 MG TABLET PO SCH (21:44)
[2017-07-19] MEDS: LATANOPROST 0.005% EYE DROPS 2.5ml EACH EYE SCH (21:45)
[2017-07-19] MEDS: DONEPEZIL 10 MG TABLET PO SCH (21:45)
[2017-07-19] MEDS: QUETIAPINE 100 MG TABLET PO SCH (21:46)
[2017-07-20] MEDS: MAGNESIUM OXIDE 400 MG TABLET PO SCH ×2 (08:18→20:12)
[2017-07-20] MEDS: MEMANTINE 5 MG TABLET PO SCH ×2 (08:18→20:12)
[2017-07-20] MEDS: SENNA + DOCUSATE TABLET PO SCH (08:18)
[2017-07-20] MEDS: QUETIAPINE 25 MG TABLET PO SCH (08:18)
[2017-07-20] MEDS: MULTI-VITAMIN PLAIN TABLET PO SCH (08:18)
[2017-07-20] MEDS: CYANOCOBALAMIN (B-12) 500mcg TABLET PO SCH (08:18)
[2017-07-20] MEDS: FERROUS GLUCONATE 324 MG TABLET PO SCH (12:02)
[2017-07-20] MEDS: DONEPEZIL 10 MG TABLET PO SCH (20:10)
[2017-07-20] MEDS: GABAPENTIN 600 MG TABLET PO SCH (20:10)
[2017-07-20] MEDS: ACETAMINOPHEN 325 MG TABLET PO SCH (20:10)
[2017-07-20] MEDS: LORazepam 1 MG TABLET PO SCH (20:11)
[2017-07-20] MEDS: LATANOPROST 0.005% EYE DROPS 2.5ml EACH EYE SCH (20:11)
[2017-07-20] MEDS: QUETIAPINE 100 MG TABLET PO SCH (20:12)
[2017-07-21] MEDS: MAGNESIUM OXIDE 400 MG TABLET PO SCH ×2 (08:00→20:12)
[2017-07-21] MEDS: SENNA + DOCUSATE TABLET PO SCH (08:00)
[2017-07-21] MEDS: CYANOCOBALAMIN (B-12) 500mcg TABLET PO SCH (08:01)
[2017-07-21] MEDS: MEMANTINE 5 MG TABLET PO SCH ×2 (08:01→20:13)
[2017-07-21] MEDS: QUETIAPINE 25 MG TABLET PO SCH (08:01)
[2017-07-21] MEDS: MULTI-VITAMIN PLAIN TABLET PO SCH (08:01)
[2017-07-21] MEDS: FERROUS GLUCONATE 324 MG TABLET PO SCH (11:54)
--- NOTE | 2017-07-21 13:14 | Neuropsych Progress Note ---
[facility] Subjective Date: 07/21/17 - Sujective/Severity of Illness Medications: Acetaminophen (Tylenol) 650 mg PO [facility] Last Admin: 07/20/17 20:10 Dose: 650 mg Cholecalciferol (Vit. D-3) 2,000 unit PO DAILY [facility] Last Admin: 07/21/17 08:00 Dose: 2,000 unit Cyanocobalamin (Vit. B-12) 500 mcg PO DAILY [facility] Last Admin: 07/21/17 08:01 Dose: 500 mcg Donepezil HCl (Aricept 10 Mg) 10 mg PO [facility] Last Admin: 07/20/17 20:10 Dose: 10 mg Ferrous Gluconate (Fergon) 324 mg PO NOON [facility] Last Admin: 07/21/17 11:54 Dose: 324 mg Gabapentin (Neurontin) 600 mg PO [facility] Last Admin: 07/20/17 20:10 Dose: 600 mg Haloperidol (Haldol) 0.5 mg PO Q6H PRN PRN Reason: Extreme agitation Haloperidol Lactate (Haldol) 0.5 mg IM Q6H PRN PRN Reason: Extreme agitation Latanoprost (Xalatan) 1 drops EACH EYE [facility] Last Admin: 07/20/17 20:11 Dose: 1 drops Lorazepam (Ativan) 0.5 mg PO Q6H PRN PRN Reason: Extreme agitation Lorazepam (Ativan Inj) 0.5 mg IM Q6H PRN PRN Reason: Extreme agitation Lorazepam (Ativan) 1 mg PO [facility] Last Admin: 07/20/17 20:11 Dose: 1 mg Magnesium Oxide (Magox) 400 mg PO BID [facility] Last Admin: 07/21/17 08:00 Dose: 400 mg Memantine (Namenda) 5 mg PO BID [facility] Last Admin: 07/21/17 08:01 Dose: 5 mg Multivitamins (Theragran) 1 tab PO DAILY [facility] Last Admin: 07/21/17 08:01 Dose: 1 tab Polyethyl Glycol/Propylene Glycol (Systane Eye Drops) 1 drop EACH EYE QID PRN PRN Reason: FOR DRY EYES Last Admin: 07/21/17 11:54 Dose: 1 drop Polyethylene Glycol (Miralax) 17 gm PO DAILY PRN PRN Reason: Constipation Quetiapine Fumarate (Seroquel) 25 mg PO DAILY [facility] Last Admin: 07/21/17 08:01 Dose: 25 mg Quetiapine Fumarate (Seroquel) 100 mg PO HS [facility] Last Admin: 07/20/17 20:12 Dose: 100 mg Senna/Docusate Sodium (Senna Plus Tablet) 1 tab PO DAILY [facility] Last Admin: 07/21/17 08:00 Dose: 1 tab Sodium Chloride (Deep Sea Nasal Moisturizing [place]) 1 spray EA NOSTRIL PRN [facility] Subjective: Patient seen and chart reviewed. Case discussed with treatment team. On interview, patient is sitting in his room. He reports his mood is good and appears euthymic, relaxed. He asks about discharge but is redirectable and agreeable to SLUMS and FRANNIE today. Patient denies any SI, HI or AVH. Patient denies any adverse side effects related to psychotropic medications. He seems to have little insight in regards to previously reported symptoms or cognitive deficits. Nursing staff report patient has overall been pleasant/cooperative without significant behavioral difficulties in past 24 hours. Patient has been adherent with medications. He has been participating well in group. Patient slept 7 hours overnight. VSS. Patient is eating well. Psychotropic PRNs required in the past 24 hours: none. Start Time: 13:40 Stop Time: 14:00 Mental Status Exam Vitals: Last Vital Signs Temp 97.4 F 07/21/17 08:00 Pulse 74 07/21/17 08:00 Resp 20 07/21/17 08:00 BP 123/69 07/21/17 08:00 Pulse Ox 93 07/21/17 08:00 Height: 1.7 m Weight: 84.3 kg - Mental Status Exam Muscle Strength/Tone: Normal Dressing: Casual Grooming: Good Attitude: Cooperative Motor Activity: Normal Eye Contact: Good Speech: Normal Volume: Normal Rhythm: Appropriate Rhythm Orientation: Disoriented to situation, Oriented to person, Oriented to time Mood: Euthymic Affect: Relaxed Rate of Thoughts: Appropriate Rate Thought Organization: [place] Associations: Illogical Abstract Reasoning: Poor abstract reasoning Thought Content: Normal Perception/Psychotic: Perception Normal Language: Naming Impaired Fund of Knowledge: Poor fund of knowledge Memory: Poor-immediate, Poor-recent Suicidal Ideation: Denies Homicidal Ideation: Denies Insight: Impaired Judgement: Impaired Impulse Control: Fair - Laboratory Result Diagrams: 07/15/17 15:40 07/18/17 07:18 Assessment and Plan (1) Major neurocognitive disorder Problem details: 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 Will discharge back to SNU tomorrow. Would recommend tapering HS Ativan gradually if patient tolerates. Hospital Course Summary Disclaimer: The visit summary below is not to be considered part of the above Progress Note. Hospital Course: 07/16 Agree with [facility] w/u. TSH was normal. CXR unremarkable. Vit B12 and folate still pending. BP moderately elevated - monitor for now. He's not on an antiHTN. Encourage oral fluids for hypernatremia. Recheck BMP on 07/18. Provide safe, supportive environment. Dr Rodriguez's recommendations were reviewed. Clinic records and [facility] [place] home records were reviewed. Code: DNR. PCP: Dr. Meadows. 07/17/17 Psych note- No behaviors. Continue current care. 07/18/17 Psych: Decrease Klonopin to 0.5mg PO q HS; monitor response. 07/19/17 Psych: Discontinue Klonopin. Start Ativan 1mg PO q HS and monitor response. 07/21/17 Psych: Repeat FRANNIE and SLUMS today to make recommendation to family in regards to required level of care after discharge. Will discharge back to SNU tomorrow. Would recommend tapering HS Ativan gradually if patient tolerates.
--- NOTE | 2017-07-21 14:00 | Neuropsychiatric Disch Summary ---
Discharge Information Date of admission: 07/15/17 16:25 Anticipated date of discharge: 07/22/17 Attending Physician: Kylee Penn MD Primary care physician: Сергей Meadows MD Consults: 07/15/17 21:28 Case Management Consult [CONS] Routine Reason For Exam: Medical comorbidities Physician Consult [CONS] Routine Consulting Provider: Alejandro Morelos Reason For Exam: Medical comorbidities Ordering Provider has Notified Order Packer Or Packager: No Comment: Nursing - please notify - Discharge Diagnosis (1) History of subarachnoid hemorrhage Status: Acute (1) Major neurocognitive disorder Problem details: 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 Nursing reports pt slept well and has done well on the unit. On face to face the pt is pleasant but confused. He is a somewhat poor historian. Pt is alert and oriented x 3 but states he is here because a "Chain saw hit me in the head". He was reporting to nursing staff he believed he was in a war and needed to go outside to 'get the sniper". He voices no concerns at this time. PSYCH ROS: Pt is very pleasant. He reports his mood is stable. He denies any S/I or depressive symptoms. He reports sleeping well and having a good appetite. He denies anxiety, aiden or psychosis. PAST PSYCH: Pt is currently on Seroquel, Ritalin, Klonopin, Aricept and Namenda. No other past psych hx is known at this time although pt denies ever being treated for a mental health issues. SUBSTANCE: Denies SOCIAL HX: Born in [place]. Was a [employer]. . Hospital Course This is a general summary of the patient's hospital course. For more details refer to the complete medical record. Hospital course: Ritalin held at time of admission. 07/16 Agree with [facility] w/u. TSH was normal. CXR unremarkable. Vit B12 and folate still pending. BP moderately elevated - monitor for now. He's not on an antiHTN. Encourage oral fluids for hypernatremia. Recheck BMP on 07/18. Provide safe, supportive environment. Dr Rodrigeuz's recommendations were reviewed. Clinic [place] [facility] [place]. Code: DNR. PCP: Dr. Meaodws. 07/17/17 Psych note- No behaviors. Continue current care. 07/18/17 Psych: Decrease Klonopin to 0.5mg PO q HS; monitor response. 07/19/17 Psych: Discontinue Klonopin. Start Ativan 1mg PO q HS and monitor response. 07/21/17 Psych: Repeat FRANNIE and SLUMS today to make recommendation to family in regards to required level of care after discharge. Will discharge back to SNU tomorrow. Would recommend tapering HS Ativan gradually if patient tolerates. Resuscitation Status: Do Not Resuscitate Discharge Plan - Med Rec/Dispo Referrals/Follow Up: Antonio Meadows MD [Physician] - (Dr. Yehuda Meadows on 07/29/17 at 4:30 pm for Hosp. follow-up. [place] [id number] PCP will manage Mental Health needs at this time.) Additional Instructions: Discharge Diagnosis: Major neurocognitive disorder, mixed etiology likely ( Alzheimer's and vascular), moderate, with behavioral disturbance History of subarachnoid hemorrhage Reasons for Admission: Sundowning, aggression, not sleeping, paranoia, and talking about war IN CASE OF PSYCHIATRIC EMERGENCY, CONTACT [facility] STAFF AT [phone] ( available 24 hrs daily). Prescriptions: New LORazepam [Ativan] 1 mg PO HS 30 Days #30 tab Continue Acetaminophen [Tylenol] 650 mg PO HS Ferrous Gluconate 324 mg PO NOON Quetiapine [Seroquel] 25 mg PO DAILY Memantine HCl [Namenda] 5 mg PO BID Donepezil [Aricept 10 mg] 1 tab PO DAILY Multivitamin [One Daily] 1 each PO DAILY Cyanocobalamin (Vitamin B-12) [Vitamin B-12] 1 tab SL DAILY Cholecalciferol (Vitamin D3) [Vitamin D3] 2,000 unit PO DAILY Sennosides/Docusate Sodium [Senokot-S Tablet] 1 tab PO DAILY Gabapentin [Neurontin] 600 mg PO HS PEG 3350 17gm PACKET [Miralax] 17 gm PO DAILY PRN PRN Reason: Constipation Propylene Glycol/Peg 400 [Systane Ultra 0.4-0.3% Eye Drp] 1 drop OP QID PRN PRN Reason: Dry Eyes Quetiapine [Seroquel] 100 mg PO HS Magnesium 250 mg PO BID Sodium Chloride [[place] Saline] 1 spray CONCEPCION PRN latanoprost (Xalatan) 0.005 % eye drops 1 drop EACH EYE HS #2.5 ml Discontinued Melatonin 3 mg PO HS Acetaminophen [Tylenol] 650 mg PO Q4HR PRN PRN Reason: Pain clonazePAM [Klonopin] 1 mg PO HS clonazePAM [Klonopin] 1 mg PO PRN Methylphenidate. [Ritalin] 10 mg PO BIDBL - Disposition 03 To SNU Not [facility] ([facility]) - Dismissal Complete Discharge Instructions are:: Complete
--- NOTE | 2017-07-21 14:00 | Extended Care Facility Orders ---
Admission Orders Admit to:: [facility] Allergies/Adverse Reactions: Allergies Penicillins Allergy (Mild, Verified 07/15/17 14:53) RASH Admitting Diagnosis: dementia with behavioral disturbance Admitting Physician: Kylee Penn MD Attending Physician: Kylee Penn MD Code Status: Do Not Resuscitate Anticiapted Length of Stay: greater than 30 days Rehab Potential: fair Rehab Prognosis: fair Diet: 07/15/17 Dinner Regular Diet [DIET] Diet Modifications: May use Facility Protocol or Standing Orders: Yes May have flu vaccine: Yes Evaluations/Treatment: Psychiatric [facility] Certification: I certify that SNF services are required to be given on an Inpatient basis because of the patients need for senior living care on a continuing basis for the condition(s) for which he/she received inpatient hospital services prior to his/her transfer to the SNF. SNF inpatient care is necessary for the following reasons Indication for [facility]: Other (PT/OT, history of subarachnoid hemorrhage ) - Additional Information In Event of Arrest: Do Not Start CPR Resident is Aware of Diagnosis: Yes (limited insight into cognitive deficits) Referrals: Antonio Meadows MD [Physician] -
[2017-07-21] MEDS: ACETAMINOPHEN 325 MG TABLET PO SCH (20:11)
[2017-07-21] MEDS: LATANOPROST 0.005% EYE DROPS 2.5ml EACH EYE SCH (20:12)
[2017-07-21] MEDS: DONEPEZIL 10 MG TABLET PO SCH (20:12)
[2017-07-21] MEDS: LORazepam 1 MG TABLET PO SCH (20:12)
[2017-07-21] MEDS: GABAPENTIN 600 MG TABLET PO SCH (20:12)
[2017-07-21] MEDS: QUETIAPINE 100 MG TABLET PO SCH (20:13)
[2017-07-22] MEDS: CYANOCOBALAMIN (B-12) 500mcg TABLET PO SCH (08:55)
[2017-07-22] MEDS: MAGNESIUM OXIDE 400 MG TABLET PO SCH (08:56)
[2017-07-22] MEDS: QUETIAPINE 25 MG TABLET PO SCH (08:56)
[2017-07-22] MEDS: SENNA + DOCUSATE TABLET PO SCH (08:56)
[2017-07-22] MEDS: MEMANTINE 5 MG TABLET PO SCH (08:56)
[2017-07-22] MEDS: MULTI-VITAMIN PLAIN TABLET PO SCH (08:56)
[2017-07-22 10:20] VITALS: BP 137/79; PULSE 71; RESP 16; TEMP 98.2; O2SAT 94
--- NOTE | 2017-07-22 10:51 | Progress Note ---
- Date 07/22/17 Subjective: Jacky is seen today in follow up. He is alert, ready for dismissal. Denies pain or other concerns. Objective Vital signs: Temperature 98.2 F 07/22/17 08:00 Pulse Rate 71 07/22/17 08:00 Respiratory Rate 16 07/22/17 08:00 Blood Pressure 137/79 07/22/17 08:00 Pulse Oximetry 94 07/22/17 08:00 Height/Weight/BMI: Height 1.7 m Weight 84.3 kg Body Mass Index 29.1 - Constitutional Present: no acute distress, well nourished, well developed, cooperative - Routine HEENT Exam Head: Present: normocephalic, atraumatic Eye: Present: EOMI, PERRL ENT: Present: mucous membranes moist - Routine Respiratory Exam Present: CTA bilaterally. Absent: rales, rhonchi, distant breath sounds - Routine Cardiovascular Exam Present: RRR, S1, S2 - Routine Abdominal Exam Present: soft, normoactive bowel sounds, non distended, non tender - Routine Extremities Exam Present: no edema, non tender - Routine Musculoskeletal Exam Musculoskeletal: Present: moving extremities well - Routine Skin Exam Present: intact, dry, warm - Routine Neurological Exam Present: alert, moving all extremities - Routine Psychiatric Exam Present: normal affect, cooperative Results - Labs CBC & Chem 7: 07/15/17 15:40 07/18/17 07:18 Assessment and Plan Assessment and Plan: Assessment Hypernatremia Anemia, normocytic 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 Home today ([facility]) Still some mild hypernatremia, continue to encourage PO fluids. Avoid diuretics. BP is stable. No other acute concerns. F/U PCP 1 week. Resuscitation Status: Do Not Resuscitate - Physician Narrative Narrative: Date: 07/22/17 Time: 1048 Hospital Course Summary Disclaimer: The visit summary below is not to be considered part of the above Progress Note. Hospital Course: 07/16 Agree with [facility] w/u. TSH was normal. CXR unremarkable. Vit B12 and folate still pending. BP moderately elevated - monitor for now. He's not on an antiHTN. Encourage oral fluids for hypernatremia. Recheck BMP on 07/18. Provide safe, supportive environment. Dr Rodriguez's recommendations were reviewed. Clinic records and [facility] home records were reviewed. Code: DNR. PCP: Dr. Meadows. 07/17/17 Psych note- No behaviors. Continue current care. 07/18/17 Psych: Decrease Klonopin to 0.5mg PO q HS; monitor response. 07/19/17 Psych: Discontinue Klonopin. Start Ativan 1mg PO q HS and monitor response. 07/21/17 Psych: Repeat FRANNIE and SLUMS today to make recommendation to family in regards to required level of care after discharge. Will discharge back to [facility] tomorrow. Would recommend tapering HS Ativan gradually if patient tolerates. 07/22/17 Patient is doing well. Home today. Still some mild hypernatremia, continue to encourage PO fluids. Avoid diuretics. BP is stable. No other acute concerns. F/U PCP 1 week.
[2017-07-22] MEDS: FERROUS GLUCONATE 324 MG TABLET PO SCH (12:02)
== END 2017-07-22 13:25 | DRG 57 ==
LOC: ED 14:41 → GEN 16:15
PROVIDERS: ADMIT Psychiatry & Neurology Psychiatry; ATTEND Psychiatry & Neurology Psychiatry